=== PATIENT | female | born 1985 ===

== ENCOUNTER 2021-01-16 10:36 | Emergency (ER) | payer BC ==
[~2021-01-16] VITALS: Ht 167.6 cm; Wt 97.5 kg
--- NOTE | 2021-01-16 10:43 | NUR ---
Dr Martines at the bedside for MSE.
[2021-01-16] MEDS ORDERED: ATOR10TA PO (10:51)
[2021-01-16] MEDS ORDERED: MAGN400C PO (10:56)
--- NOTE | 2021-01-16 11:49 | NUR ---
Patient is resting comfortably in bed with eyes closed, NAD noted
[2021-01-16 12:09] VITALS: BP 133/76
--- NOTE | 2021-01-16 12:09 | NUR ---
Patient discharged to home in stable condition. Written and verbal after care instructions given. Patient verbalizes understanding of instructions. Stressed follow up or return to ER for worsening s/s.
== END 2021-01-16 12:59 | disposition home or self-care (01) ==
LOC: ER 10:36
DX: M79.605 Pain in left leg (principal); E78.5 Hyperlipidemia, unspecified; Z79.899 Other long term (current) drug therapy; F41.9 Anxiety disorder, unspecified
CPT/HCPCS: 36415; A4663

== ENCOUNTER 2022-10-10 19:25 | Emergency (ER) | payer BC ==
[~2022-10-10] VITALS: Ht 167.6 cm; Wt 104.3 kg
[~2022-10-10 19:25] MED LIST: ATOR10TA PO; MAGN400C PO
--- NOTE | 2022-10-10 20:45 | NUR ---
PT AMB TO [facility] 2B WITH C/O MARGE LE SWELLING.
--- NOTE | 2022-10-10 21:30 | NUR ---
AT BEDSIDE FOR EVAL.
[2022-10-10 23:51] VITALS: BP 128/99
== END 2022-10-10 23:51 | disposition home or self-care (01) ==
LOC: ER 19:26
DX: M79.662 Pain in left lower leg (principal); R60.0 Localized edema; I80.3 Phlebitis and thrombophlebitis of lower extremities, unspecified; E78.5 Hyperlipidemia, unspecified; Z79.899 Other long term (current) drug therapy
CPT/HCPCS: A4663